=== PATIENT | female | born 1985 | race Two or more races ===

== ENCOUNTER 2018-02-16 15:36 | Emergency (ER) | payer OTHER ==
[~2018-02-16] VITALS: Ht 165.1 cm; Wt 91.2 kg
[2018-02-16 17:13] VITALS: BP 164/96
== END 2018-02-16 17:31 | disposition home or self-care (01) ==
LOC: EME 15:36
DX: M79.672 Pain in left foot (principal); M89.8X7 Other specified disorders of bone, ankle and foot; Z98.890 Other specified postprocedural states; I10 Essential (primary) hypertension
CPT/HCPCS: 73630; 99281; 99284